=== PATIENT | female | born 1940 | race Caucasian/White ===

== ENCOUNTER 2016-11-25 07:37 | Inpatient (IN) | payer MEDICARE, OTHER ==
[~2016-11-25] VITALS: Ht 157.5 cm; Wt 49.9 kg
[2016-11-25] MEDS ORDERED: Vancomycin 1 GM in NS 275 ML IV ONE (08:45)
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
[2016-11-25] MEDS ORDERED: NKM (09:31)
[2016-11-25] MEDS ORDERED: Vancomycin 1gm inj IVPB ONE (09:33)
[2016-11-25 09:35] VITALS: BP 203/86
[2016-11-25 10:11] LABS: BASOPHILS % (AUTO) 1.8 % (0.0-2.0); EOSINOPHILS % (AUTO) 0.7 % (0.0-3.0); LYMPHOCYTES % (AUTO) 21.8 % (20.0-45.0); MEAN CORPUSCULAR HEMOGLOBIN 29.4 PG (27.0-31.0); MEAN CORPUSCULAR HGB CONC 31.9 G/DL (32.0-36.0); MEAN CORPUSCULAR VOLUME 92 FL (80-99); MEAN PLATELET VOLUME 11.5 FL (6.5-10.1); MONOCYTES % (AUTO) 8.7 % (1.0-10.0); PLATELET COUNT 177 K/UL (150-450); RED BLOOD COUNT 4.68 M/UL (4.20-5.40); RED CELL DISTRIBUTION WIDTH 13.4 % (11.6-14.8); WHITE BLOOD COUNT 7.7 K/UL (4.8-10.8)
[2016-11-25 10:24] LABS: ALANINE AMINOTRANSFERASE 18 U/L (3-33); ANION GAP 15 (5-15); ASPARTATE AMINO TRANSFERASE 27 U/L (5-40); CALCIUM 9.6 mg/dL (8.6-10.2); CARBON DIOXIDE 26 mEQ/L (20-30); CHLORIDE 99 mEQ/L (98-107); CREATININE 0.6 mg/dL (0.5-0.9); HEMOLYSIS 81; POTASSIUM 4.4 mEQ/L (3.4-4.9); SODIUM 140 mEQ/L (135-145); TOTAL PROTEIN 7.5 g/dL (6.6-8.7)
[2016-11-25 10:45] VITALS: BP 165/80
[2016-11-25 11:45] VITALS: BP 203/82
[2016-11-25 12:20] VITALS: BP 163/68
--- NOTE | 2016-11-25 12:34 | Consultation ---
Consult Note Assessment/Plan A/ 1) Cellulitis left foot 2) Superficial nonpressure ulcer dorsal left foot 3) Severe foot deformity 2/2 RA 4) Painful callus right heel P/ 1) Patient failed oral abx. Recommend continued IV abx. Patient wished to be discharged from ED. Advised that she would benefit from IV abx since she failed oral treatment. She agreed 2) Will order wound care for dorsal left foot 3) X-ray left foot 4) Cont padding of right heel callus, will follow and if needed [facility]. Thank you Seymour Wilson DPM Nov 25, 2016 12:34
[2016-11-25] MEDS ORDERED: Timolol 0.5% Op Soln 2.5ml BOTH EYES SCH (13:45)
[2016-11-25] MEDS ORDERED: Brimonidine 0.2% Opth Sol BOTH EYES ONE (13:45)
[2016-11-25] MEDS ORDERED: LORazepam 0.5mg tab ORAL PRN (14:00)
[2016-11-25] MEDS ORDERED: Zolpidem 5mg tab ORAL PRN (14:45)
[2016-11-25] MEDS ORDERED: Norco 5mg/325mg tab ORAL PRN (14:45)
[2016-11-25 16:00] VITALS: BP 143/64
--- NOTE | 2016-11-25 16:56 | Infectious Diseases Prog Note ---
Assessment/Plan Assessment/Plan ID consult dictated A; purulent cellulitis P: continue Vancomycin Subjective Allergies: Coded Allergies: ACETAMINOPHEN (Verified Allergy, Unknown, 11/25/16) CODEINE (Verified Allergy, Unknown, 11/25/16) HYDROCODONE (Verified Allergy, Unknown, 11/25/16) Uncoded Allergies: NO NARCOTIC (Allergy, Unknown, 11/25/16) Objective Vital Signs Last 24 Hour Vital Signs Date Time Temp Pulse Resp B/P Pulse Ox O2 Delivery O2 Flow Rate FiO2 11/25/16 13:41 84 18 163/68 100 Room Air 11/25/16 12:20 98.7 78 18 163/68 100 Room Air 11/25/16 10:45 72 18 165/80 100 Room Air 11/25/16 09:35 98.8 78 18 203/86 100 Room Air 11/25/16 07:48 98.2 80 14 172/79 99 Room Air Height (Feet): 5 Height (Inches): 2.00 Weight (Pounds): 110 Laboratory Tests Test 11/25/16 09:25 White Blood Count 7.7 K/UL (4.8-10.8) Red Blood Count 4.68 M/UL (4.20-5.40) Hemoglobin 13.8 G/DL (12.0-16.0) Hematocrit 43.1 % (37.0-47.0) Mean Corpuscular Volume 92 FL (80-99) Mean Corpuscular Hemoglobin 29.4 PG (27.0-31.0) Mean Corpuscular Hemoglobin Concent 31.9 G/DL (32.0-36.0) L Red Cell Distribution Width 13.4 % (11.6-14.8) Platelet Count 177 K/UL (150-450) Mean Platelet Volume 11.5 FL (6.5-10.1) H Neutrophils (%) (Auto) 67.0 % (45.0-75.0) Lymphocytes (%) (Auto) 21.8 % (20.0-45.0) Monocytes (%) (Auto) 8.7 % (1.0-10.0) Eosinophils (%) (Auto) 0.7 % (0.0-3.0) Basophils (%) (Auto) 1.8 % (0.0-2.0) Sodium Level 140 mEQ/L (135-145) Potassium Level 4.4 mEQ/L (3.4-4.9) Chloride Level 99 mEQ/L (98-107) Carbon Dioxide Level 26 mEQ/L (20-30) Anion Gap 15 (5-15) Blood Urea Nitrogen 11 mg/dL (7-23) Creatinine 0.6 mg/dL (0.5-0.9) Estimat Glomerular Filtration Rate mL/min (>60) Glucose Level 103 mg/dL (74-106) Lactic Acid Level 1.60 mmol/L (0.66-2.22) Calcium Level 9.6 mg/dL (8.6-10.2) Total Bilirubin 0.7 mg/dL (0.0-1.2) Aspartate Amino Transf (AST/SGOT) 27 U/L (5-40) Alanine Aminotransferase (ALT/SGPT) 18 U/L (3-33) Alkaline Phosphatase 82 U/L (35-104) Total Protein 7.5 g/dL (6.6-8.7) Albumin 3.8 g/dL (3.5-5.2) Globulin 3.7 g/dL Albumin/Globulin Ratio 1.0 (1.0-2.7) Current Medications Medications (Trade) Dose Ordered Sig/Kamlesh Route PRN Reason Start Time Stop Time Status Last Admin Dose Admin Acetaminophen (Tylenol) 650 mg Q6H PRN ORAL Mild Pain/Temp > 100.5 11/25/16 14:45 12/25/16 14:44 Brimonidine Tartrate (Alphagan) 1 drop DAILY ONCE BOTH EYES 11/25/16 13:45 11/25/16 13:46 UNV Clonidine HCl (Catapres) 0.1 mg BID ORAL 11/25/16 18:00 12/25/16 17:59 UNV Heparin Sodium (Porcine) (Heparin 5000 units/ml) 5,000 units EVERY 12 HOURS SUBQ 11/25/16 21:00 12/25/16 20:59 Lorazepam (Ativan) 0.5 mg Q6H PRN ORAL For Anxiety 11/25/16 14:00 12/02/16 13:59 Non-Formulary Medication (Non-Formulary Med) 1 ea DAILY BOTH EYES 11/25/16 13:45 12/25/16 13:44 UNV Timolol Maleate (Timoptic 0.5% Op Soln) 1 drop TWICE A DAY BOTH EYES 11/25/16 13:45 12/25/16 13:44 UNV Zolpidem Tartrate (Ambien) 5 mg HSPRN PRN ORAL Insomnia 11/25/16 14:45 12/25/16 14:44 PHONG HARRINGTON Nov 25, 2016 16:56
--- NOTE | 2016-11-25 16:58 | Diagnostic Imaging Report ---
Infected Indication: Infection, pain Technique: 3 views left foot Comparison: none Findings: There is subluxation, suspect chronic, of the first metatarsal phalangeal joint, with the phalanges angulated 90? lateral to the expected direction. There is severe pes planus deformity. Bones are profoundly osteoporotic. There is hammertoe deformity of the second through fifth digits. No definite acute fractures. No definite osseous erosions. However, evaluation for such is very limited given degree of osteoporotic change as well as the alignment abnormality. There are vascular calcifications Impression: Extensive deformities, as described Osteoporosis No definite plain radiographic findings to suggest acute osteomyelitis. However, sensitivity for such on plain radiographs is inherently limited, per decubiti given the severe osteoporotic changes and alignment abnormalities are present. If there is high clinical suspicion, consider MRI or bone scanning for better characterization
--- NOTE | 2016-11-25 19:48 | Consultation ---
DATE OF CONSULTATION: 11/25/2016 CONSULTING PHYSICIAN: Seymour Whitt D.P.M. REFERRING PHYSICIAN: Eusebio Cervantes M.D. REASON FOR CONSULTATION: Cellulitis, left foot. HISTORY OF PRESENT ILLNESS: The patient is a 75-year-old female, who was admitted to [facility] on 11/25/2016 for cellulitis and pain. The patient admits that the foot is painful. Denies any fevers, chills, nausea, or vomiting. She states that she was at the ER at [facility] and was discharged. She has been followed by Dr. Mccormick there for her foot deformities. PAST MEDICAL HISTORY: Significant for aortic stenosis, hypertension, meningioma, and rheumatoid arthritis. PAST SURGICAL HISTORY: Aortic valve replacement, brain surgery, ovarian cystectomy, cholecystectomy, removal of meningioma, and multiple foot surgeries. SOCIAL HISTORY: The patient denies any alcohol use or tobacco use. She resides at home. MEDICATIONS AT HOME: Include 81 mg of aspirin; Lumigan; Alphagan; Keflex, she is taking for the cellulitis; lidocaine ointment; Bactroban; and Betimol. ALLERGIES: She is allergic to oral and IV iodine, Vicodin, codeine, epinephrine, norepinephrine, sulfa, Novocaine, oxycodone, and penicillins. REVIEW OF SYSTEMS: HEENT: The patient denies any headaches, blurred vision, or ringing in the ears. Cardiorespiratory: The patient denies any chest pain or shortness of breath. Genitourinary: The patient denies any urgency, frequency, burning upon urination, or hematuria. Gastrointestinal: The patient denies any constipation, diarrhea, or blood in the stool. PHYSICAL EXAMINATION: VITAL SIGNS: Temperature is 98.7, pulse is 78, respiratory rate is 18, blood pressure is 163/68, and she is saturating 100% on room air. EXTREMITIES: Lower extremity physical exam, vascular, nonpalpable pedal pulses noted bilaterally. Left foot is warmer than the right. There is no edema or cyanosis noted. DERMATOLOGICAL: There is erythema noted on the dorsum of the left foot with mild superficial ulceration noted. No purulence is noted from the site. Unable to assess the interdigital spaces as the contractures of her foot are so severe and are painful to separate the toes. She does have a painful callus noted on the plantar aspect of the right heel, otherwise, remaining dermatological exam is unremarkable. MUSCULOSKELETAL: The patient is ambulatory with a cane. She has severe hallux valgus bilaterally with the contractures of the toes. 4/5 muscle strength is noted in anterolateral and posterior muscle groups of bilateral lower extremities. NEUROLOGICAL: Protective threshold is normal. LABORATORY DATA: White blood cell count is 7.7, hemoglobin and hematocrit is 13.8 and 43.1, and platelet count is 177,000. Potassium is 4.4, BUN is 11, and creatinine is 0.6. Lactic acid is 1.6. Albumin of 3.8. ASSESSMENT: 1. Cellulitis, left foot. 2. Superficial non-pressure ulcer of the dorsal left foot. 3. Severe foot deformity secondary to rheumatoid arthritis. 4. Painful callus, right heel. PLAN: 1. The patient failed oral antibiotics. Recommend continued IV antibiotics. The patient wished to be discharged from the ED. Advised that she would benefit from IV antibiotics since she had failed the oral treatment. She agreed. 2. We will order wound care for the dorsal left foot. 3. X-ray of the left foot. 4. Continue padding of the right heel callus. We will follow and if needed, we will debride callus. Thorough chart review performed of her [facility] chart. Thank you for the courtesy of this consultation, Dr. Cervantes. Seymour Whitt D.P.M. DR: DEB JOB#: [id number] CC:
[2016-11-25] MEDS ORDERED: Heparin 5000 units/ml inj SUBQ SCH (21:00)
--- NOTE | 2016-11-26 08:09 | Consultation ---
DATE OF CONSULTATION: 11/25/2016 INFECTIOUS DISEASE CONSULTATION This consult is for coverage of Dr. Yen. CONSULTING PHYSICIAN: Neftaly Guzmán M.D. PRIMARY ATTENDING: Eusebio Cervantes M.D. REASON FOR CONSULTATION: Left foot cellulitis. HISTORY OF PRESENT ILLNESS: The patient is a 75-year-old female, admitted today from home complaining of pain and ulcer in the left foot. The patient's symptoms started one week ago, she took cephalexin at home that did not work well, developing discharge and ulcer at the dorsum of the foot. PAST MEDICAL HISTORY: Significant for foot deformities in both feet. The patient states that he had a fracture of calcaneus bone that cannot be fixed because of the deformity. ALLERGIES: Allergic to Tylenol, codeine, and hydrocodone. MEDICATIONS: Heparin, Vacomycin, Ambien, , Alphagan eye drops, and timolol eye drops. SOCIAL HISTORY: . No alcohol, drug abuse, or smoking. REVIEW OF SYSTEMS: She has pain in the left foot. No fever. No chills. No other symptoms. PHYSICAL EXAMINATION: VITAL SIGNS: Temperature 98.7, pulse 84, and blood pressure 163/68. GENERAL APPEARANCE: No acute distress. Awake, alert. HEAD AND NECK: [place] conjunctivae. HEART: S1 and S2 are regular. LUNGS: Clear. ABDOMEN: Soft and nontender. Bowel sounds are present. EXTREMITIES: Has erythema in the left foot, discharge from ulcer and foot. She has severe deformity of the both feet and according to disability program navigator, deformity is because of the rheumatoid arthritis. LABORATORY AND DIAGNOSTIC DATA: WBC 7.7, hemoglobin 13.8, hematocrit 43.1, and platelets 177,000. Sodium 140, potassium 4.4, chloride 99, bicarbonate 26, BUN 11, creatinine 0.6, and glucose 103. IMPRESSION: Purulent cellulitis of the left foot. The patient did not respond to Keflex treatment as an outpatient. The patient has hypertension and foot deformity. The patient also has a history of aortic valve replacement. RECOMMENDATIONS: Continue vancomycin. The patient insisted to be discharged and sent home without IV antibiotics. If in case of discharge, we will add Bactrim one double strength tablet q.12 h. The patient had foot x-ray. We will follow up on the foot x-ray. Also, a culture is pending. At the end of my exam, I thank Dr. Cervantes, for involving me in the care of this patient. Neftaly Guzmán M.D. DR: SAMI JOB#: [id number] CC: KYA
--- NOTE | 2016-11-26 08:18 | History and Physical Report ---
DATE OF ADMISSION: 11/25/2016 HISTORY OF PRESENT ILLNESS: The patient is very pleasant 75-year-old female who has a history of right foot deformity, presented here to [facility] to the ER with redness and warmth of her lower extremity. The patient went to [facility] yesterday, however, was not happy with the care given here and decided to leave against medical advice. She was given a prescription for Keflex there. She now presents here to [place]. She denies any fevers or chills. No history of diabetes. She has had previous infections in her legs. PAST MEDICAL HISTORY: Includes a history of arthritis involving multiple joints, predominantly both feet. She has had multiple surgeries in the past, history of bifrontal meningioma that was treated surgically many years ago. History of aortic stenosis. She is status post aortic valve replacement with bioprosthetic valve and enlargement of the aortic root by Dr. Malachi Mario in August 2014, history of manic depressive illness, history of hypertension, questionable history of rheumatoid arthritis, history of ovarian cystectomy, history of cholecystectomy, history of multiple foot surgeries, history of obsessive-compulsive behavior, dependent personality, depression, history of seborrheic dermatitis, . ALLERGIES: She is allergic to iodine, Vicodin, codeine, epinephrine, norepinephrine, sulfa, Novocain, and penicillins. MEDICATIONS: She is on, please see reconciled medication list. SOCIAL HISTORY: She does not smoke. Does not drink any alcohol. PHYSICAL EXAMINATION: GENERAL: She is well developed, well nourished, currently in no apparent distress. VITAL SIGNS: Revealed blood pressure , pulse 80, respirations 14, pulse oximetry 99% on room air. Temperature 98.2. HEENT: Head is normocephalic and atraumatic. Pupils are equal, reactive to light. Extraocular muscles are intact. Eyes are anicteric. NECK: Supple. Full range of motion. No JVP. No bruits. LUNGS: Clear. HEART: Regular rate and rhythm. ABDOMEN: Soft. Positive bowel sounds. EXTREMITIES: She does have deformities of lower extremities. She has some erythema with some warmth. There appears to be a superficial ulcer as well. LABORATORY AND DIAGNOSTIC DATA: Reveal white count 7.7, hemoglobin 13.8, hematocrit 43.1, platelet count 177,000. Sodium 140, potassium 4.4, BUN 11, and creatinine 0.6. Lactic acid 1.6. ASSESSMENT AND PLAN: The patient is an unfortunate 75-year-old female with history of foot deformity, history of recurrent cellulitis, presents with erythema, redness, and warmth. Denies any fever. She had been seen at [facility], left against medical advice, was given at that time prescription for Keflex, presented to [place]. The patient will be admitted. wanted me to follow her. The patient will be admitted. ID consultation was requested from Dr. Yen. Antibiotics per Dr. Yen. Consider MRI of her foot. I will also ask podiatry evaluation to see from Dr. Whitt. If her blood pressure is elevated, we will place on clonidine as needed and consider starting BP medications. I have also ordered lower extremity venous and arterial duplex studies. The patient should be on DVT and ulcer prophylaxis. Eusebio Cervantes M.D. : [place] JOB#: [id number] CC:
--- NOTE | 2016-11-27 10:56 | Discharge Summary ---
Discharge Summary Hospital Course Date of Admission Nov 25, 2016 at 09:12 Date of Discharge Nov 25, 2016 at 18:28 Admitting Diagnosis cellulitis/possible osteomyelitis HPI Bethany Mckeon is a 75 year old female who was admitted on Nov 25, 2016 at 09:12 for Cellulitis,Osteomyelitis Hospital Course [id number] Discharge Discharge Disposition Patient left AMA Discharge Diagnoses: Mary Agee NP Nov 27, 2016 10:56
--- NOTE | 2016-11-28 01:18 | Discharge Summary 2 SIG ---
DATE OF ADMISSION: 11/25/2016 DATE OF DISCHARGE: 11/25/2016 CONSULTANTS: 1. Neftaly Guzmán M.D. 2. Seymour Whitt D.P.M. BRIEF HOSPITAL COURSE: The patient is a 75-year-old female with history of right foot deformity, presented to ED with redness and warmth of her lower extremity. The patient was at [facility] the day prior, however, was not happy with care and decided to leave against medical advice. She was given prescriptions for Keflex. She presented to ED and was admitted for further workup. She was seen by Dr. Whitt and recommended intravenous antibiotics and was ordered wound care. She was also seen by Infectious Disease specialist, who advised to continue with IV vancomycin, however, the patient insisted on p.o. antibiotics and insisted to be discharged. The patient left against medical advice. FINAL DIAGNOSES: 1. Purulent cellulitis of the left foot. 2. Superficial non-pressure ulcer of the dorsal left foot. 3. Severe foot deformity secondary to rheumatoid arthritis. 4. Painful callus of the right heel. 5. Noncompliance. Eusebio Cervantes M.D. I have been assigned to dictate discharge summary on this account and I was not involved in the patient's management. Mary Agee N.P. DR: KERRY JOB#: [id number] CC:
== END 2016-11-25 18:28 | disposition left against medical advice (07) | DRG 603 ==
LOC: EMR 08:13 → 4W 09:12 → EDBEDREQ 12:05 → 4W 13:46
DX: L03.116 Cellulitis of left lower limb (principal); L97.929 Non-pressure chronic ulcer of unspecified part of left lower leg with unspecified severity; M06.9 Rheumatoid arthritis, unspecified; L84 Corns and callosities; I10 Essential (primary) hypertension; Z95.2 Presence of prosthetic heart valve; Z91.19 Patient's noncompliance with other medical treatment and regimen
CPT/HCPCS: 36415; 80053; 83605; 85025; 87040; 87070; 87181; 87205